=== PATIENT | male | born 1990 ===

== ENCOUNTER → 2021-11-23 12:59 | Outpatient (BNVA) | payer SELFPAY | PROVIDERS: Visit Provider Registered Nurse Neonatal Intensive Care | DX: S82.892A Other fracture of left lower leg, initial encounter for closed fracture (principal); X58.XXXA Exposure to other specified factors, initial encounter | CPT/HCPCS: 73610 ==

== ENCOUNTER 2021-11-26 16:25 | Day surgery (SDC) | payer SELFPAY ==
[2021-11-26] VITALS (7 sets, daily range): BP systolic 133–163; BP diastolic 88–106; PULSE 87–93; RESP 18; TEMP 36.3–37.2; O2SAT 97–98; BMI 28.9
--- NOTE | 2021-11-26 | SCC_ITS ---
Procedure done: Reduction internal fixation left bimalleolar ankle fracture with syndesmotic fixation 107.3 seconds of fluoroscopic guidance, for a cumulative dose of 1.25 mGy, was provided to Dr. Connelly by the radiology department. C-arm images of the left ankle were saved for the patient's permanent record. [facility]
[2021-11-26] MEDS: sodium chloride 0.9% 1,000 ML 30 ML IV (17:03)
[2021-11-26] MEDS: acetaminophen 1,000 MG/100 ML PIGGYBACK 400 MG IV (17:03)
[2021-11-26] MEDS: CELEcoxib 200 mg Capsule 400 MG PO (17:03)
--- NOTE | 2021-11-26 17:50 | P.HPUD_ITS ---
Surgery/Procedure H&P Update DATE OF PROCEDURE: November 26, 2021 DATE H&P PERFORMED: 11/24/21 H&P UPDATE INFORMATION: I have reviewed H&P completed within last 30 days, I have examined patient prior to procedure, No changes to prior documentation and H&P is in [facility] [place] EMR on date indicated PREOP DIAGNOSIS: Left Bimalleolar ankle fracture dislocation with syndesmosis disruption PLANNED PROCEDURE: Operation Date: 11/26/21 18:10 Proposed Procedures p OPEN REDUCTION INTERNAL FIXATION LEFT ANKLE WITH SYNDESMOTIC FIXATION [id number],S82.842A(Left) - Nikki Connelly MD Related Problem List Diagnoses (1) Bimalleolar fracture of left ankle: Qualifiers: Encounter type: initial encounter Fracture type: closed Qualified Code(s): S82.842A - Displaced bimalleolar fracture of left lower leg, initial encounter for closed fracture (2) Acute disruption of syndesmosis of ankle joint:
--- NOTE | 2021-11-26 17:54 | ANES.PREANE2 ---
Documented by User: Darvin Hernández Jr, FLARE [employer]ITCHER 11/26/21 18:05 Pre-Anesthetic Assessment Height/Weight: Height 1.52 m Weight 67.132 kg Temp Pulse Resp BP Pulse Ox 98.3 F 90 18 151/88 97 11/26/21 16:33 11/26/21 16:33 11/26/21 16:33 11/26/21 16:33 11/26/21 16:33 Preop Diagnosis: Bimalleolar ankle fracture dislocation with syndesmosis disruption Operation Date: 11/26/21 18:10 Proposed Procedures p OPEN REDUCTION INTERNAL FIXATION LEFT ANKLE WITH SYNDESMOTIC FIXATION [id number],S82.842A(Left) - Nikki Connelly MD Familial anesthetic complications: none Was Beta Siddharth taken within 24 hours: N/A Was Clonidine taken within 24 hours: N/A Last intake: Intake Last Liquid Date 11/26/21 Last Liquid Time 11:30 Last Solid Date 11/26/21 Last Solid Time 09:00 Last Intake: 11:30 Social Alcohol (2-3 beers daily) and No tobacco Exam alert, oriented x 3, clear to auscultation bilaterally and regular rate & rhythm Airway Submandibular: within normal limits Cervical ROM: within normal limits Mallampati: Class I Dentition: full Pulmonary None reported CV/HEM None reported None reported Hepatic None reported GI None reported Metabolic None reported Musc/skel None reported Neuropsych None reported Anesthetic Plan ASA status: 1 Anesthesia: General Medications/Allergies Home Medications Medication Instructions Recorded Confirmed Last Taken Type No Known Home Medications 11/24/21 11/24/21 Unknown History acetaminophen 500 mg tablet 1,000 mg PO Q8H 15 Days #90 tab 11/26/21 Unknown Rx (Tylenol Extra Strength) meloxicam 15 mg tablet 15 mg PO DAILY #30 tab 11/26/21 Unknown Rx oxycodone 5 mg tablet 5 mg PO Q4H PRN 7 Days #30 tab 11/26/21 Unknown Rx Allergies Allergy/AdvReac Type Severity Reaction Status Date / Time No Known Allergies Allergy Verified 11/24/21 08:13 Current Medications Generic Name Dose Route Start Last Admin Trade Name Freq PRN Reason Stop Dose Admin Sodium Chloride 1,000 mls @ 30 mls/hr 11/26/21 16:30 11/26/21 17:03 Sodium Chloride 0.9% IV 11/27/21 16:29 30 mls/hr .Q24H DAVID Administration Data Anesthesia Cardiac Studies: No Data to Display
--- NOTE | 2021-11-26 20:07 | XR_ITS ---
WS: [id number] Exam: XR ankle LT min 3V* [id number] Date/Time of Exam: 11/26/2021 8:07 PM Reason For Exam: OR PICS Intraoperative the C-arm images of the left ankle are submitted for evaluation. Final images demonstrate a plate and screw fixation involving a comminuted fracture of the lower fibu la. Alignment is anatomic for healing. The ankle mortise is been restored. There is cable fixation of the fibula and tibia. XR/XR ankle LT min 3V* [id number] IMPRESSION: 1. Satisfactory internal fixation involving a fracture of the distal fibula. Ca ble fixation of the tibia and fibula with christianity of the ankle mortise.
--- NOTE | 2021-11-26 20:34 | PM.OP ---
Operative Report Date of procedure: November 26, 2021 Pre-op diagnosis: Left Bimalleolar ankle fracture dislocation with syndesmosis disruption Post-op diagnosis: Left Bimalleolar ankle fracture dislocation with syndesmosis disruption Procedure done: Reduction internal fixation left bimalleolar ankle fracture with syndesmotic fixation Implants: The Meagan 6 hole lateral fibular plate and a sync fix tight rope Specimens removed/disposition: None Pathology: none sent Surgeon: Nikki Connelly [place]: [facility] operating room technicians Anesthesia: General (Intubated, ASA 2) Estimated blood loss (mL): 20 Tourniquet time (min): 97 (At 250 mmHg) IV fluids (mL): 1,000 Urine output (mL): 0 (No Mathis) Complications: None Findings: Lateral malleolar fracture, comminuted and syndesmotic disruption Condition: stable Disposition: PACU (Then discharge to home) Brief History: This is a new 31 year old male patient here today for evaluation of his left ankle. DOI: 11/14/2021.? Patient states that he was walking when he tripped on uneven ground causing an inversion injury. Patient states that he walked on the ankle before having it evaluated. Patient states that the pain is to the anterior ankle as well as the lateral and medial. Patient presents to the clinic utilizing a cam boot and crutches. Patient has been non weight bearing. Patient presents to the clinic with a family friend for translation as patient does not speak any Marshallese. Procedure: Patient was seen in the preoperative holding area and leg was marked. Patient was brought to the operating theater and placed on the operating room table. After undergoing adequate general anesthesia, ASA 2, the patient's left lower extremity was prepped and draped in usual fashion utilizing DuraPrep. The leg was draped free. Fluoroscopy was used throughout the surgical procedure. We had a tourniquet high on the left lower extremity. This was elevated to 250 mmHg and total tourniquet time was 97 minutes. Tourniquet elevation followed exsanguination of the leg. A surgical pause was performed. At the time of the surgical pause we identified the site and side of surgery as well as the patient's identity and availability of equipment. We also confirmed appropriate administration of IV antibiotics. Following the above, an incision was made centering over the patient's lateral malleolar comminuted fracture. The incision was continued proximally and distally as necessary to allow access to the fracture and allow 3 screw holes above the most proximal extent of the fracture. We were able to reduce the fracture anatomically. This was held with a clamp while we placed a lateral fibular plate held in place with K wires. While this was held in place and the fracture was reduced, we used AP and lateral fluoroscopy to assure that this was appropriately reduced. At that time, the plate was attached with standard technique. The syndesmotic fixation device was passed from lateral to medial while the syndesmosis was held in a reduced position. This was the [employer] fit tight rope. This was passed without difficulty and nicely held the syndesmosis reduced. The lateral wound was then copiously irrigated. We also irrigated the medial wound. We then closed the lateral wound with 0 Vicryl in the fascial tissues, 2-0 Monocryl in the subcutaneous tissues, and 3-0 Monocryl in the subcuticular tissue is for a subcuticular closure. This was followed by Babs Carlos, Anastacia, sterile soft roll, and an Nazario wrap. The patient was returned to his cam walker boot and is to remain nonweightbearing. The procedure was well tolerated without complication. Tourniquet time was 97 minutes at 250 mmHg. The patient will be discharged home to follow-up in my office as scheduled. Related Problem List Diagnoses (1) Bimalleolar fracture of left ankle: (2) Acute disruption of syndesmosis of ankle joint:
[2021-11-26] MEDS: fentaNYL 50 mcg/mL INJ 2mL IVP (20:42)
[2021-11-26] MEDS: oxyCODONE 5 mg IR Tab/Cap PO (21:03)
--- NOTE | 2021-11-27 08:26 | ANE.PACU2 ---
Inpatient post-anesthesia follow up: Airway intact: Yes Vital signs: Temperature 98.9 F Pulse Rate 90 Respiratory Rate 18 Blood Pressure 154/106 Pulse Oximetry 97 Oxygen Delivery Me thod Room Air Oxygen Flow Rate Fraction of Inspir ed Oxygen Hydration adequate: Yes Nausea and vomiting: No Pain level: 3 Mental status: Baseline
== END 2021-11-26 21:21 | disposition home or self-care (01) ==
PROVIDERS: Visit Provider Specialist
PROC: (CPT 27814; principal; 2021-11-26 18:10)
DX: S82.842A Displaced bimalleolar fracture of left lower leg, initial encounter for closed fracture (principal); W18.40XA Slipping, tripping and stumbling without falling, unspecified, initial encounter
CPT/HCPCS: 27814; 73610; 76000; C1713; J1100; J1170; J1885; J2405; J2704; J3010; J3490; J7030

== ENCOUNTER → 2021-12-01 08:03 | Outpatient (BNVA) | payer SELFPAY | PROVIDERS: Visit Provider Specialist | DX: S82.842D Displaced bimalleolar fracture of left lower leg, subsequent encounter for closed fracture with routine healing (principal); X58.XXXD Exposure to other specified factors, subsequent encounter; Z98.890 Other specified postprocedural states; M79.89 Other specified soft tissue disorders | CPT/HCPCS: 73610 ==

== ENCOUNTER → 2021-12-20 07:57 | Outpatient (BNVA) | payer SELFPAY | PROVIDERS: Visit Provider Specialist | DX: S82.842A Displaced bimalleolar fracture of left lower leg, initial encounter for closed fracture (principal); S93.439A Sprain of tibiofibular ligament of unspecified ankle, initial encounter; X58.XXXA Exposure to other specified factors, initial encounter | CPT/HCPCS: 73610 ==

== ENCOUNTER → 2022-01-06 09:32 | Outpatient (BNVA) | payer SELFPAY | PROVIDERS: Visit Provider Specialist | DX: S82.842D Displaced bimalleolar fracture of left lower leg, subsequent encounter for closed fracture with routine healing (principal); S93.439D Sprain of tibiofibular ligament of unspecified ankle, subsequent encounter; X58.XXXD Exposure to other specified factors, subsequent encounter; Z98.890 Other specified postprocedural states | CPT/HCPCS: 73610 ==

== ENCOUNTER → 2022-01-20 09:17 | Outpatient (BNVA) | payer SELFPAY | PROVIDERS: Visit Provider Specialist | DX: S82.892A Other fracture of left lower leg, initial encounter for closed fracture (principal); X58.XXXA Exposure to other specified factors, initial encounter | CPT/HCPCS: 73610 ==

== ENCOUNTER 2022-01-20 14:01 | Outpatient (CLI) | payer SELFPAY | END 2022-01-20 14:02 | disposition home or self-care (01) | LOC: SPT 14:02 | PROVIDERS: Visit Provider Specialist | DX: Z46.89 Encounter for fitting and adjustment of other specified devices (principal); S82.842D Displaced bimalleolar fracture of left lower leg, subsequent encounter for closed fracture with routine healing; S93.439D Sprain of tibiofibular ligament of unspecified ankle, subsequent encounter; X58.XXXD Exposure to other specified factors, subsequent encounter | CPT/HCPCS: 97760; L1902 ==

== ENCOUNTER → 2022-02-21 11:05 | Outpatient (BNVA) | payer SELFPAY | PROVIDERS: Visit Provider Specialist | DX: S82.842D Displaced bimalleolar fracture of left lower leg, subsequent encounter for closed fracture with routine healing (principal); X58.XXXD Exposure to other specified factors, subsequent encounter | CPT/HCPCS: 73610 ==